=== PATIENT | male | born 1990 | race Caucasian/White ===

== ENCOUNTER → 2022-12-04 | Outpatient (CLI) | payer OTHER ==
[~2022-12-04] MED LIST: ALBU90OI; ALBU90OI INH; ALBU90OI6 INH; AZIT250 PO; DICL25ER PO; DOXY100 PO; HYDACE5 PO; IBUP600 PO; IBUP800 PO; Keflex500 MG PO; LORA10ER PO; Motrin600 MG PO; NAPR550 PO; OXYACE5T PO; PHENA200 PO; PRED20 PO; Prednisone20 MG PO; SPACE CHAMBER1 EACH MC; SULTRIDS PO; TRAM50 PO
[2022-12-07 06:11] LABS: HSV-1 DNA Negative (Negative); HSV-2 DNA Positive (Negative)
== END ==
LOC: LAB SHORT 13:41
PROVIDERS: Physician Assistant
DX: N48.9 Disorder of penis, unspecified (principal)
CPT/HCPCS: 87529